=== PATIENT | male | born 1955 | race Two or more races ===

== ENCOUNTER 2016-11-25 23:25 | Emergency (ER) | payer MEDICAID ==
[~2016-11-25] VITALS: Ht 172.7 cm; Wt 72.6 kg
[~2016-11-25 23:25] MED LIST: NKM
[2016-11-25 23:45] VITALS: BP 108/68
[2016-11-26] MEDS ORDERED: Norco 5mg/325mg tab ORAL ONE (00:15)
[2016-11-26 01:45] VITALS: BP 112/69
[2016-11-26] MEDS ORDERED: HYDROCODON-ACE1 EA15 ORAL (02:10)
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
[2016-11-26 03:45] VITALS: BP 111/66
[2016-11-26 04:55] VITALS: BP 117/73
[2016-11-26 04:56] VITALS: BP 117/73
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
== END 2016-11-26 04:57 | disposition home or self-care (01) ==
LOC: EDBD 23:25 → EMR 23:48
DX: M54.5 Low back pain (principal); G89.29 Other chronic pain
CPT/HCPCS: 72131; 99284